=== PATIENT | female | born 1990 | race Asian ===

== ENCOUNTER 2018-11-22 00:33 | Outpatient (CLI) | payer OTHER ==
[2018-11-22] VITALS (7 sets, daily range): BP systolic 133–142; BP diastolic 64–84; PULSE 88–102; TEMP 98.4
[~2018-11-22] VITALS: Ht 154.9 cm; Wt 89.5 kg
--- NOTE | 2018-11-22 01:00 | NUR ---
Ambulatory to unit for labor assessment, accompanied by spouse. oriented to room, monitor,plan of care. Pt and spouse states contractions started @2200.
--- NOTE | 2018-11-22 01:15 | NUR ---
SVE as noted, 'old' bloody show noted on exam glove, no red bloody show or leaking of fluid noted.
--- NOTE | 2018-11-22 02:30 | NUR ---
Repeat SVE with no changes noted. Pt reports contractions stronger and more frequent, ctx more organized on EFM. Will monitor and reassess
--- NOTE | 2018-11-22 03:40 | NUR ---
repeat SVE with no changes noted. Discussed with pt and spouse
[2018-11-22] MEDS ORDERED: PRENATAL VITAMI1 T12 PO (03:59)
--- NOTE | 2018-11-22 04:00 | NUR ---
Off monitor for discharge.
--- NOTE | 2018-11-22 04:20 | NUR ---
Discharge instructions reviewed with pt and spouse, questions invited and answered. Ambulatory off unit [id number].
== END 2018-11-22 04:25 | disposition home or self-care (01) ==
LOC: LDRO 00:33 → LDR 01:05 → LDRO 04:25
DX: O62.9 Abnormality of forces of labor, unspecified (principal); Z3A.40 40 weeks gestation of pregnancy
CPT/HCPCS: OP

== ENCOUNTER 2018-11-22 22:42 | Inpatient (IN) | payer OTHER ==
[~2018-11-22] VITALS: Ht 154.9 cm; Wt 89.5 kg
[~2018-11-22 22:42] MED LIST: PRENATAL VITAMI1 T12 PO
[2018-11-22 23:00] VITALS: BP 125/87; PULSE 122; TEMP 98.9
[2018-11-22 23:30] VITALS: BP 130/75; PULSE 107
[2018-11-22 23:59] LABS: BASO # 0.1 (0.0-0.2); BASO % 0.3 % (0.0-2.0); EOS % 0.2 % (0-4.0); GRAN # 14.6 (1.4-6.5); GRAN % 81.1 % (42.2-75.2); HEMATOCRIT 41.3 % (37.0-47.0); HEMOGLOBIN 13.6 g/dl (12.5-16.0); LYMPH % 10.9 % (20.0-51.0); MEAN CELL VOLUME 87 fl (80.0-100.0); MEAN CORPUSCULAR HEMOGLOBIN 29 pg (27.0-31.0); MEAN CORPUSCULAR HGB CONC 33 g/dl (33.0-37.0); MEAN PLATELET VOLUME 10.1 fl (7.4-10.4); MONO # 1.1 (0.1-0.6); PLATELET COUNT 241 K/mm3 (130-400); RED BLOOD COUNT 4.77 M/mm3 (4.10-5.30); REDCELL DISTRIBUTION WIDTH-CV 14.5 % (11.5-14.5)
[2018-11-23] VITALS (43 sets, daily range): BP systolic 95–137; BP diastolic 47–95; PULSE 61–130; TEMP 97.6–100.1
--- NOTE | 2018-11-23 02:00 | NUR ---
2245- Patient to LDR-4 from ED in wheelchair with . Patient oriented to room. Patient into restroom to change into gown and void. 2249- Patient helped into bed. EFM and TOCO on and tracing. Patient was here on L&D early this AM and was discharged home. Patient here with complaints of contractions since 1100 every 5-10 minutes with intermittent 1-2 hour breaks. Patient denies bleeding or LOF. Patient admits to having some brown spotting increasingly throughout the day. Assessment completed. VSS. 2300- SVE /-2 by WAGNER Archer. Patient did not tolerate check well. 2315- See Physician Notification. 232- Admission orders received. 0000- FHT baseline 150. 0005- Late deceleration noted on FHT strip. RN to bedside. FHR audible into the 60's. Patient repositioned to LL quickly and FHT audibily increasing. FHT recovered to baseline after 6 minutes. Robert Archer RN at bedside and updated. 0025- Patient is requesting an epidural at this time. KEM Barger notified. 0030- EFM and TOCO off. Patient into restroom to void. 0038- EFM and TOCO on and tracing. Patient standing at bedside for comfort. 0055- KEM Barger at bedside. Patient repositioned to sitting upright on side of bed. EFM and TOCO on and tracing intermmittently due to maternal positioning during epidural placement. 0109- Single Shot. See Anesthesia Record. 0110- Patient is complaining of a headache. KEM Barger answered all questions in depth to patient and . Patient's states she cannot "feel anything" and that the patient is having "an outer body experience and is numb". Patient is neurovascularly intact and is able to move extremities and squeeze this RN's hands with normal strength. Patient with complaints of N/V. 0117- Late deceleration noted. Patient repositioned to LL. FHT audibly into the 80's. Patient unable to reposition herself and is not following commands at this time. Robert Archer RN at bedside to help with repositioning. SVE /-1 by WAGNER Archer. 0124- Patient repositioned RL. FHT recovered to baseline of 150 after 6 minutes. RN remains at bedside to monitor patient. Patient resting. 0135- SVE /-1. Patient tolerated well. Patient resting at this time. 0200- Christensen Catheter placed. 0215- SVE Complete/-1. Patient repositioned to sitting upright in karo position to help with laboring down. Labor process and pushing explained to patient and . states patient "will not be able to push, she is too weak and tired". Labor and pushing explained to patient in depth due to her unwillingness to cooperate in simple tasks and repositioning movements. Explained to patient consequences of not being able to push and that it is not only for her safety but the baby as well. and patient nod with understanding, but this will need practice and review. home health aid updated on patient's status. KEM Barger remains at labor desk.
--- NOTE | 2018-11-23 06:00 | NUR ---
0230- Patient states she is starting to feel "like herself" again. AOx4. VSS. 0315- SVE Complete/0. 0415- Practice Pushes x3. updated. 0438- SROM. Small amount of odorless, meconium fluid noted. 0445- at bedside. Patient pushes with contractions with MD. 0455- KEM Barger contacted for pain management. 0500- KEM Barger at bedside. at bedside. Pitocin initiated per protocol. 0600- Patient continues to push with contractions.
--- NOTE | 2018-11-23 06:48 | NUR ---
0606- Roles at bedside to evaluate pushing. Discusses options with Pt. After discussion, Pt and would like to try to push for 30 more minutes. Pt requests to call and talk to her mother, time given for this. 0620- This RN requested at bedside by Pt. Coached on how to push. Pt attempts to push with 2 UCs, minimal effort noted by Pt. Pt states she has too much "pressure" in her upper abd. Requesting to procede with C/S. Roles at nurses station, updated on request. 0628- Roles at bedside, informed consent provided, questions answered. Pt prepped for C/S. 0628- EFM off. Pt transported to OR via bed.
--- NOTE | 2018-11-23 12:00 | NUR ---
1200- Pt assited in rolling [id number] for pericare and removing epidural catheter. Pt tolerated well. Prescott replaced on abd. Peripad under Pt. Pt encouraged to order lunch, verbalizes understanding.
[2018-11-24 05:00] VITALS: BP 120/75; PULSE 102; TEMP 97.6
[2018-11-24 06:45] VITALS: BP 110/80; PULSE 83; TEMP 98
--- NOTE | 2018-11-24 07:00 | NUR ---
Rests in bed, alert. Denies any needs at this time.
[2018-11-24 08:29] LABS: HEMATOCRIT 32.7 % (37.0-47.0); HEMOGLOBIN 10.7 g/dl (12.5-16.0)
--- NOTE | 2018-11-24 09:00 | NUR ---
Ambulates around in room. Sits up on bench. Assist with breast feeding using a shield. Does well with encouragement.
--- NOTE | 2018-11-24 10:00 | NUR ---
Ambulates to the bathroom and back. Denies any needs at this time.
--- NOTE | 2018-11-24 11:30 | NUR ---
Percocet 5/325 mg. given as ordered and per request.
--- NOTE | 2018-11-24 13:00 | NUR ---
Ambulates in the [address]. Tolerates well, back to room. Sits up on bench, breastfeeds baby.
[2018-11-24 16:50] VITALS: BP 139/84; PULSE 90; TEMP 97.3
[2018-11-24 20:45] VITALS: BP 125/64; PULSE 98; TEMP 98
[2018-11-25 06:50] VITALS: BP 119/80; PULSE 81; TEMP 97.7
--- NOTE | 2018-11-25 09:15 | NUR ---
Initial visit; Parents thanked for offering congratulations for the of their daughter. Director [employer] thanked family for choosing [facility].
[2018-11-25 19:30] VITALS: BP 124/63; PULSE 79; TEMP 98.3
[2018-11-26] MEDS ORDERED: PERCOCET 325 MG1 TA2 PO (08:42)
[2018-11-26] MEDS ORDERED: IBU600 MG PO (08:42)
[2018-11-26 09:25] VITALS: BP 119/64; PULSE 75; TEMP 97.9
--- NOTE | 2018-11-26 13:10 | NUR ---
1310- This RN at bedside to take parents and baby to nursery for bath demo. states that Pt has vomitted twice since breakfast and is feeling sick again. Pt procedes to vomit in sink, provided graduated cylinder. Pt states she had 1/2 of a banana, 1/2 of a pancake, and milk around 1030. She complains of headache that comes and goes, improves with medication and rest. Pt denies body aches. VSS. Informed Pt that they will be unable to go into nursery but we will figure out a way to perform bath demo in room. Plan to call MD now.
[2018-11-26 13:15] VITALS: BP 138/86; PULSE 78; TEMP 98.6
[2018-11-26 14:18] LABS: BILIRUBIN,TOTAL 0.2 mg/dL (0.0-1.0); CREATININE, serum 0.48 (0.52-1.25); POTASSIUM 4.3 mmol/L (3.4-5.0); TOTAL PROTEIN 6.4 gm/dL (6.4-8.2)
[2018-11-26 14:20] LABS: BASO # 0.1 (0.0-0.2); BASO % 0.5 % (0.0-2.0); EOS # 0.3 (0.0-0.7); EOS % 2.8 % (0-4.0); GRAN # 7.3 (1.4-6.5); GRAN % 69.9 % (42.2-75.2); HEMATOCRIT 30.2 % (37.0-47.0); HEMOGLOBIN 9.8 g/dl (12.5-16.0); LYMPH # 1.7 (1.2-3.4); LYMPH % 16.1 % (20.0-51.0); MEAN CELL VOLUME 87 fl (80.0-100.0); MEAN CORPUSCULAR HEMOGLOBIN 28 pg (27.0-31.0); MEAN CORPUSCULAR HGB CONC 33 g/dl (33.0-37.0); MEAN PLATELET VOLUME 9.5 fl (7.4-10.4); MONO # 0.6 (0.1-0.6); PLATELET COUNT 231 K/mm3 (130-400); RED BLOOD COUNT 3.47 M/mm3 (4.10-5.30); REDCELL DISTRIBUTION WIDTH-CV 14.3 % (11.5-14.5)
== END 2018-11-26 17:55 | disposition home or self-care (01) | DRG 787 ==
LOC: LDRO 22:42 → LDR 23:20 → OB 23:20
PROVIDERS: Obstetrics & Gynecology; ADMIT Student in an Organized Health Care Education/Training Program
PROC: 10D00Z1 Extraction of Products of Conception, Low, Open Approach (ICD-10-PCS; principal; 2018-11-23)
DX: O62.1 Secondary uterine inertia (principal); O75.2 Pyrexia during labor, not elsewhere classified; Z3A.41 41 weeks gestation of pregnancy; Z37.0 Single live birth; O77.0 Labor and delivery complicated by meconium in amniotic fluid; O99.824 Streptococcus B carrier state complicating childbirth; O71.81 Laceration of uterus, not elsewhere classified
CPT/HCPCS: J0690; J1885; J2175; J2250; J2270; J2370; J2405; J2540; J2590; J2704; J2795; J7120